=== PATIENT | female | born 1995 | race Two or more races ===

== ENCOUNTER 2018-09-14 17:28 | Inpatient (IN) | payer OTHER ==
[~2018-09-14] VITALS: Ht 160 cm; Wt 95.3 kg
[2018-09-14] MEDS ORDERED: diphenhydrAMINE HCL 25 MG CAPSULE PO PRN (21:15)
[2018-09-14] MEDS ORDERED: TERBUTALINE 1 MG/ML VIAL. SQ PRN (21:15)
[2018-09-14] MEDS ORDERED: ONDANSETRON PF 4 MG/2 ML VIAL. IV PRN (21:15)
[2018-09-14] MEDS ORDERED: CITRIC ACID/SODIUM CITRATE 30 ML SOLUTION. PO PRN (21:15)
[2018-09-14] MEDS ORDERED: MAG HYDROX/ALUMINUM HYD/SIMETH 30 ML ORAL.SUSP PO PRN (21:15)
[2018-09-14] MEDS ORDERED: ACETAMINOPHEN 500 MG TABLET PO PRN (21:15)
[2018-09-14] MEDS ORDERED: 0.9 % SODIUM CHLORIDE 10 ML DISP.SYRIN. IV PRN (21:15)
[2018-09-14] MEDS ORDERED: IV RINGERS,LACTATED 1000ML 1,000 ML IV SCH (22:00)
[2018-09-14 22:05] LABS: BASO % 0 % (0-3); EOS # 0.2 x10^3/uL (0.0-0.7); EOS % 2 % (0-3); HEMATOCRIT 33.6 % (36.0-47.0); HEMOGLOBIN 11.5 g/dL (12.0-15.5); LYMPH % 18 % (24-48); MEAN CORPUSCULAR HEMOGLOBIN 30 pg (25-35); MEAN CORPUSCULAR HGB CONC 34 g/dL (31-37); MEAN CORPUSCULAR VOLUME 89 fL (79-100); MONO # 0.8 x10^3/uL (0.0-1.1); MONO % 7 % (0-9); NEUT # 8.1 x10^3/uL (1.8-7.7); NEUT % 73 % (31-73); PLATELET COUNT 201 x10^3/uL (140-400); RED BLOOD COUNT 3.79 x10^6/uL (3.50-5.40); RED CELL DISTRIBUTION WIDTH 12.7 % (11.5-14.5); WHITE BLOOD COUNT 11.1 x10^3/uL (4.0-11.0)
[2018-09-14 22:42] LABS: BILIRUBIN,URINE NEGATIVE (NEG); CLARITY,URINE CLEAR; COLOR,URINE YELLOW; NITRITE,URINE NEGATIVE (NEG); PROTEIN,URINE NEGATIVE (NEG-TRACE); UROBILINOGEN,URINE 0.2 mg/dL (0.2 mg/dL)
[2018-09-14 22:47] LABS: SQUAMOUS EPITHELIAL CELL,UR MOD /LPF
[2018-09-14 22:48] LABS: BACTERIA,URINE 0 /HPF (0-FEW); RBC,URINE OCC /HPF (0-2)
[2018-09-14 22:57] LABS: AMPHETAMINE/METHAMPHETAMINE NEG (NEG); BARBITURATES NEG (NEG); BENZODIAZEPINES NEG (NEG); CANNABINOIDS NEG (NEG); COCAINE NEG (NEG); METHADONE NEG (NEG); OPIATES NEG (NEG); PHENCYCLIDINE NEG (NEG)
[2018-09-14 23:15] VITALS: BP 139/71
[2018-09-14] MEDS: IV RINGERS,LACTATED 1000ML 1,000 ML IV SCH (23:24)
[2018-09-15] VITALS (9 sets, daily range): BP systolic 115–133; BP diastolic 76–88
[2018-09-15] MEDS: IV RINGERS,LACTATED 1000ML 1,000 ML IV SCH ×3 (04:32→22:08)
[2018-09-15] MEDS ORDERED: PNV11TAB PO (08:45)
[2018-09-15] MEDS ORDERED: IV RINGERS,LACTATED 1000ML 1,000 ML IV SCH (10:18)
[2018-09-15] MEDS ORDERED: ONDANSETRON PF 4 MG/2 ML VIAL. IV PRN ×2 (10:30→13:30)
[2018-09-15] MEDS ORDERED: fentaNYL PF VIAL 100 MCG/2 ML VIAL IV PRN ×2 (10:30)
[2018-09-15] MEDS ORDERED: HYDROmorphone 2 MG/ML VIAL IV PRN (10:30)
[2018-09-15] MEDS ORDERED: KETOROLAC 30 MG/ML VIAL. IV PRN (10:30)
[2018-09-15] MEDS ORDERED: PROCHLORPERAZINE 10 MG/2 ML VIAL. IV PRN (10:30)
[2018-09-15] MEDS ORDERED: MORPHINE SULFATE 2 MG/ML VIAL. IV PRN (10:30)
[2018-09-15] MEDS ORDERED: LIDOCAINE 1% PF 2 ML VIAL. ID PRN (10:30)
[2018-09-15] MEDS ORDERED: METOCLOPRAMIDE HCL 10 MG/2 ML VIAL. ONE (11:53)
[2018-09-15] MEDS ORDERED: FAMOTIDINE 20 MG/2 ML VIAL ONE (11:53)
[2018-09-15] MEDS ORDERED: DEXAMETHASONE SOD PHOS 4 MG/ML VIAL ONE (11:53)
[2018-09-15] MEDS ORDERED: ePHEDrine PF IN SALINE 50 MG/10 ML SYRINGE. IV ONE (11:53)
[2018-09-15] MEDS ORDERED: OXYTOCIN 10 UNIT/ML VIAL. ONE (11:53)
[2018-09-15] MEDS ORDERED: PHENYLEPHRINE in 0.9% NACL PF 1 MG/10 ML SYRINGE. IV ONE (11:53)
[2018-09-15] MEDS ORDERED: ONDANSETRON PF 4 MG/2 ML VIAL. ONE (11:53)
[2018-09-15] MEDS ORDERED: fentaNYL PF VIAL 100 MCG/2 ML VIAL ONE (11:55)
[2018-09-15] MEDS ORDERED: MORPHINE PF 10 MG/10 ML AMPUL. ONE (11:55)
--- NOTE | 2018-09-15 12:16 | PDOC1 ---
OB - History Hx of Present Care: Good Care Ultrasounds: Normal mid trimester US Obstetrical Complications: None Medical Complications: None Past Family/Social History * Past Medical, Surgical, Family and Obstetric Histories reviewed from chart. Rubella: Immune RPR/VDRL: Negative GBS Status: Negative HBsAG: Negative OB - Chief Complaint & HPI Date of Admission: Date of Admission: Sep 14, 2018 at 21:13 Chief Complaint/History : 1 Para: 0 EGA: 38 Reason for admission: section (Oligohydramnios and breech) Admission Nurse Assessment Rev: Yes OB - Admission Exam Physical Exam Vitals: VS - Last 72 Hours, by Label Date Time Temp Pulse Resp B/P (MAP) Pulse Ox O2 Delivery O2 Flow Rate FiO2 09/14/18 23:15 98.0 97 18 139/71 (93) 98 Room Air 98.0 HEENT: Normal Heart: Regular Rate Lungs: Clear Abdomen: Gravid, Non tender, Soft Extremities: Edema Reflexes: Normal Cervical Dilatation: None Effacement: 25% Station: -3 Membranes: Intact Heart Rate: Normal Accelerations: Accelerations Present Decelerations: No decelerations Contractions on Admission: None Intensity: Mild Text A: 38 wks IUP Oligohydramnios Breech P: Admit c/s. SHWETA MENENDEZ Jr, MD Sep 15, 2018 12:16
--- NOTE | 2018-09-15 13:18 | PDOC4 ---
OB Operative Note Date: Sep 15, 2018 PRE OP DIAGNOSIS: Breech (Oligohydramnios) POST OP DIAGNOSIS: Other (Same) OPERATION PERFORMED: [facility] Surgeon Dr. Hudson Anesthesia: Regional (Spinal) Blood Loss 600 ml Specimen placenta and infant OB Findings: Position (Breech), Sex (Female), (8/9), Weight (6 Lb), Nuchal Cord (x1) Complications none Additional Remarks pt. SHWETA Cordoba Jr, MD Sep 15, 2018 13:18
[2018-09-15] MEDS ORDERED: ZOLPIDEM 5 MG TABLET. PO PRN (13:30)
[2018-09-15] MEDS ORDERED: MAG HYDROX/ALUMINUM HYD/SIMETH 30 ML ORAL.SUSP PO PRN (13:30)
[2018-09-15] MEDS ORDERED: 0.9 % SODIUM CHLORIDE 10 ML DISP.SYRIN. IV PRN (13:30)
[2018-09-15] MEDS ORDERED: diphenhydrAMINE ORAL ELIXIR 12.5 MG/5 ML ML PO PRN (13:30)
[2018-09-15] MEDS ORDERED: OXYTOCIN 30 UNIT/500 ML PREMIX 500 ML IV PRN (13:30)
[2018-09-15] MEDS ORDERED: SIMETHICONE 80 MG TAB.CHEW PO PRN (13:30)
[2018-09-15] MEDS: KETOROLAC 30 MG/ML VIAL. IV PRN ×2 (16:08→22:09)
--- NOTE | 2018-09-15 17:53 | OP ---
DATE OF SURGERY: 09/15/2018 PREOPERATIVE DIAGNOSES: 1. A 38 weeks intrauterine . 2. Breech presentation. 3. Oligohydramnios. POSTOPERATIVE DIAGNOSES: 1. A 38 weeks intrauterine . 2. Breech presentation. 3. Oligohydramnios. PROCEDURE: Primary low-transverse section. SURGEON: Shweta Hudson MD ANESTHESIA: Spinal. ESTIMATED BLOOD LOSS: 600 mL. COMPLICATIONS: None. FINDINGS: Viable female infant, Apgars 8 and 9, weight 6 pounds. Three-vessel cord placenta, delivered manually intact. Nuchal cord x 1. SUMMARY: A 23-year-old 1 at 38 weeks, presented due to breech presentation and oligohydramnios. She was counseled on the risks, benefits and expectations of a section and voiced a clear understanding to proceed. DESCRIPTION OF PROCEDURE: The patient was taken to surgery suite and placed in dorsal supine position. She was prepped with ChloraPrep and draped in a sterile fashion. After adequate anesthesia, a Pfannenstiel skin incision was made with scalpel down to and through the fascia. Fascia was extended laterally using curved Hurst scissors. The superior edge of fascia was grasped with 2 Staci clamps and dissected free of the abdominal rectus muscles using blunt dissection along with Bovie cautery. The same process took place inferiorly. The abdominal rectus muscle was dissected bluntly at the midline. Peritoneum was grasped with 2 hemostats and entered sharply with Metzenbaum scissors. This incision was extended superiorly as well as inferiorly. The Glenroy ring retractor was placed. Low transverse hysterotomy incision was made with scalpel down to the amniotic sac. Hysterotomy incision was extended laterally and superiorly digitally. With the aid of Allis clamps, amniotomy was performed, which elicited a moderate amount of clear fluid. With aid of fundal pressure and while grasping the feet, the legs were delivered as well as the buttocks all the way down to the scapula. The was then wrapped in a moist blue towel at the hips. The right arm was flexed over the chest and delivered. The left arm was flexed over the chest and delivered. With the aid of fundal pressure, the head was then delivered in an atraumatic manner. Nuchal cord x 1 was visualized and reduced. The infant was suctioned with a bulb syringe orally and nasally, umbilical cord was clamped twice and cut and a viable female infant was handed to waiting nursing staff. Umbilical cord blood was then obtained. Three-vessel cord placenta was delivered manually intact. The uterus was then exteriorized and cleared of clot and debris with a moist lap. The hysterotomy incision was reapproximated using #1 Vicryl suture in a running locked fashion and imbricated layer of #1 Vicryl suture in a running fashion was performed for better hemostasis. Three [id number] sutures were placed in the left apex of the hysterotomy incision for better hemostasis. Uterus palpated firm. Fallopian tubes and ovaries appeared normal bilaterally. Posterior cul-de-sac was cleared of clot and debris with a moist lap. The uterus was then returned to the abdomen. The pericolic gutters were cleared of clot and debris with a moist lap. Hysterotomy incision was reviewed and hemostatic. The [place]roy ring retractor was removed. The peritoneum was reapproximated using #1 Vicryl suture in a running fashion. Fascia was reapproximated using 0 Vicryl suture in a running fashion. Skin was reapproximated using 4-0 Vicryl suture in subcuticular manner. The patient tolerated the procedure well and was taken to recovery room in stable condition. Sponge and needle count correct x 3. SHWETA HUDSON MD DR: ANISH/griselda JOB#: [id number] / [id number]
[2018-09-15] MEDS: oxyCODONE/APAP 5/325 1 TAB TABLET PO PRN (22:07)
[2018-09-15] MEDS: DOCUSATE SODIUM 100 MG CAPSULE. PO PRN (22:07)
[2018-09-16] MEDS: KETOROLAC 30 MG/ML VIAL. IV PRN (06:34)
[2018-09-16 06:52] VITALS: BP 114/80
[2018-09-16 06:58] LABS: BASO # 0.1 x10^3/uL (0.0-0.2); BASO % 1 % (0-3); EOS # 0.1 x10^3/uL (0.0-0.7); EOS % 1 % (0-3); HEMATOCRIT 29.2 % (36.0-47.0); HEMOGLOBIN 9.8 g/dL (12.0-15.5); LYMPH # 2.1 x10^3/uL (1.0-4.8); LYMPH % 19 % (24-48); MEAN CORPUSCULAR HEMOGLOBIN 30 pg (25-35); MEAN CORPUSCULAR HGB CONC 34 g/dL (31-37); MEAN CORPUSCULAR VOLUME 90 fL (79-100); MONO # 0.8 x10^3/uL (0.0-1.1); MONO % 7 % (0-9); NEUT # 8.4 x10^3/uL (1.8-7.7); NEUT % 73 % (31-73); PLATELET COUNT 162 x10^3/uL (140-400); RED BLOOD COUNT 3.25 x10^6/uL (3.50-5.40); RED CELL DISTRIBUTION WIDTH 12.6 % (11.5-14.5); WHITE BLOOD COUNT 11.5 x10^3/uL (4.0-11.0)
[2018-09-16 10:45] VITALS: BP 121/82
[2018-09-16] MEDS: oxyCODONE/APAP 5/325 1 TAB TABLET PO PRN ×2 (12:25→17:20)
[2018-09-16] MEDS: FERROUS SULFATE 325 MG TABLET. PO SCH ×3 (12:25→17:19)
[2018-09-16] MEDS: DOCUSATE SODIUM 100 MG CAPSULE. PO PRN (12:25)
[2018-09-16] MEDS: IBUPROFEN 400 MG TABLET. PO PRN ×3 (12:26→23:20)
--- NOTE | 2018-09-16 14:11 | PDOC ---
Provider Note Provider Note Doing well In nursery FU in AM CBC - BMP 09/16/18 06:15 Vital Sign - Last 24 Hours 09/15/18 09/15/18 09/15/18 09/15/18 16:20 16:35 16:50 17:10 Temp 98.4 98.4 Pulse 78 84 87 72 Resp 18 18 16 18 B/P (MAP) 126/76 (93) 124/80 (95) 132/82 (99) 124/85 (98) Pulse Ox 100 99 98 98 O2 Delivery Room Air Room Air Room Air Room Air 09/15/18 09/15/18 09/15/18 09/15/18 17:25 18:00 18:35 20:20 Temp 98.9 98.6 98.9 98.6 Pulse 81 68 64 67 Resp 18 18 18 18 B/P (MAP) 124/81 (95) 133/78 (96) 128/76 (93) 122/82 (95) Pulse Ox 98 99 99 97 O2 Delivery Room Air Room Air Room Air Room Air 09/15/18 09/15/18 09/16/18 22:08 23:30 06:52 Temp 98.3 98.1 98.3 98.1 Pulse 88 62 Resp 20 18 18 B/P (MAP) 115/88 (97) 114/80 (91) Pulse Ox 95 97 O2 Delivery Room Air Room Air Intake and Output 09/15/18 09/15/18 09/16/18 15:00 23:00 07:00 Intake Total 545 ml 300 ml Output Total 150 ml Balance 395 ml 300 ml SE MARTEL MD Sep 16, 2018 14:11
[2018-09-16 17:35] VITALS: BP 101/70
[2018-09-16 21:21] VITALS: BP 100/67
[2018-09-17 06:00] VITALS: BP 114/79
[2018-09-17] MEDS: FERROUS SULFATE 325 MG TABLET. PO SCH ×3 (08:00→16:55)
[2018-09-17] MEDS: DOCUSATE SODIUM 100 MG CAPSULE. PO PRN ×2 (08:19→23:13)
--- NOTE | 2018-09-17 09:04 | PDOC ---
Provider Note Provider Note Doing well incision CDI FU in AM Vital Sign - Last 24 Hours 09/16/18 09/16/18 09/16/18 09/17/18 10:45 17:35 21:21 06:00 Temp 98.2 98.0 97.9 97.8 98.2 98.0 97.9 97.8 Pulse 68 75 65 86 Resp 18 18 B/P (MAP) 121/82 (95) 101/70 (80) 100/67 (78) 114/79 (91) Pulse Ox 96 98 100 99 O2 Delivery Room Air Room Air Intake and Output 09/16/18 09/16/18 09/17/18 14:59 22:59 06:59 Intake Total 210 ml 360 ml Output Total 2450 ml Balance -2240 ml 360 ml SE MARTEL MD Sep 17, 2018 09:04
[2018-09-17 09:18] VITALS: BP 112/75
[2018-09-17 13:25] VITALS: BP 119/77
[2018-09-17] MEDS: oxyCODONE/APAP 5/325 1 TAB TABLET PO PRN ×2 (15:05→23:14)
[2018-09-17] MEDS ORDERED: MAGNESIUM HYDROXIDE 2,400 MG/30 ML ORAL.SUSP. PO PRN (17:00)
[2018-09-17 20:00] VITALS: BP 116/86
[2018-09-17] MEDS: IBUPROFEN 400 MG TABLET. PO PRN (23:13)
[2018-09-18 05:20] VITALS: BP 113/80
[2018-09-18] MEDS: oxyCODONE/APAP 5/325 1 TAB TABLET PO PRN ×2 (05:21→10:21)
[2018-09-18] MEDS: IBUPROFEN 400 MG TABLET. PO PRN ×2 (05:21→15:09)
[2018-09-18] MEDS: DOCUSATE SODIUM 100 MG CAPSULE. PO PRN (10:12)
[2018-09-18] MEDS: FERROUS SULFATE 325 MG TABLET. PO SCH (10:13)
[2018-09-18 10:15] VITALS: BP 128/89
[2018-09-18 17:13] VITALS: BP 123/81
--- NOTE | 2018-09-18 17:15 | NUR ---
Discharge Discharge instructions given to patient and family at this time, no questions or concerns. Given Boarder Policy information, agreed and signed placed in chart. Chart with Nursery while baby in [place]. Addendum: 09/18/18 at 1718 by EVIN ORTEGA RN To follow up with DR Hudson in 2 weeks, and Deborah polo in 6 weeks.
== END 2018-09-18 17:19 | disposition home or self-care (01) | DRG 788 ==
LOC: OBSVTOIN 21:13 → 3 SO LND 21:13 → 3 NORTH 09-15 16:25
PROVIDERS: ADMIT Obstetrics & Gynecology; ATTEND Obstetrics & Gynecology
PROC: 10D00Z1 Extraction of Products of Conception, Low, Open Approach (ICD-10-PCS; principal; 2018-09-15)
DX: O41.03X0 Oligohydramnios, third trimester, not applicable or unspecified (principal); O32.1XX0 Maternal care for breech presentation, not applicable or unspecified; O69.81X0 Labor and delivery complicated by cord around neck, without compression, not applicable or unspecified; Z37.0 Single live birth; Z3A.38 38 weeks gestation of pregnancy
CPT/HCPCS: 36415; 80307; 81001; 85025; 86592; 86850; 86900; 86901; G0378; J0171; J0696; J1100; J1885; J2274; J2370; J2405; J2590; J2765; J3010; J3490; J7120

== ENCOUNTER 2020-08-29 11:35 | Emergency (ER) | payer BC, OTHER ==
[~2020-08-29] VITALS: Ht 162.6 cm; Wt 81.8 kg
[~2020-08-29 11:35] MED LIST: PNV11TAB PO
[2020-08-29] MEDS ORDERED: ONDANSETRON PF 4 MG/2 ML VIAL. IVP ONE (13:00)
[2020-08-29] MEDS ORDERED: IV NORMAL SALINE 1000ML BAG 1,000 ML IV SCH (13:00)
[2020-08-29] MEDS ORDERED: FAMOTIDINE 20 MG/2 ML VIAL IVP ONE (13:15)
[2020-08-29 13:24] LABS: BILIRUBIN,URINE NEGATIVE (NEG); CLARITY,URINE CLEAR; COLOR,URINE YELLOW; NITRITE,URINE NEGATIVE (NEG); PROTEIN,URINE NEGATIVE (NEG-TRACE); UROBILINOGEN,URINE 0.2 mg/dL (0.2 mg/dL)
[2020-08-29 13:32] LABS: CALCIUM 8.6 mg/dL (8.5-10.1); CREATININE 0.5 mg/dL (0.6-1.0); GFR 149.1; POTASSIUM 3.6 mmol/L (3.5-5.1)
[2020-08-29 13:38] LABS: ALBUMIN 3.3 g/dL (3.4-5.0); TOTAL BILIRUBIN 0.3 mg/dL (0.2-1.0); TOTAL PROTEIN 6.7 g/dL (6.4-8.2)
[2020-08-29 13:40] LABS: BASO # 0.1 x10^3/uL (0.0-0.2); BASO % 1 % (0-3); EOS # 0.2 x10^3/uL (0.0-0.7); EOS % 2 % (0-3); HEMATOCRIT 35.9 % (36.0-47.0); HEMOGLOBIN 12.1 g/dL (12.0-15.5); LYMPH # 1.6 x10^3/uL (1.0-4.8); LYMPH % 15 % (24-48); MEAN CORPUSCULAR HEMOGLOBIN 31 pg (25-35); MEAN CORPUSCULAR HGB CONC 34 g/dL (31-37); MEAN CORPUSCULAR VOLUME 90 fL (79-100); MONO # 0.7 x10^3/uL (0.0-1.1); MONO % 7 % (0-9); NEUT # 8.1 x10^3/uL (1.8-7.7); NEUT % 76 % (31-73); PLATELET COUNT 215 x10^3/uL (140-400); RED BLOOD COUNT 3.98 x10^6/uL (3.50-5.40); WHITE BLOOD COUNT 10.6 x10^3/uL (4.0-11.0)
[2020-08-29 13:55] LABS: BACTERIA,URINE FEW /HPF (0-FEW); RBC,URINE 0 /HPF (0-2); WBC,URINE OCC /HPF (0-4)
--- NOTE | 2020-08-29 13:56 | RAD ---
First trimester OB ultrasound CLINICAL HISTORY: Abdominal pain in . COMPARISON: None available. TECHNIQUE: Endovaginal sonography was performed FINDINGS: An intrauterine gestational sac is present, normal in morphology.. An embryo is identified .Cardiac activity is visualized and documented at a rate of 133 beats per minute. There is no subchorionic flu id collection. Based on a crown rump length averaging 0.40 cm, the estimated gestational age is 6 weeks 1 day. Aisha mated date of delivery is 04/23/2021 Right ovary: 3.1 x 2.6 x 1.6 cm Left ovary: 4.4 x 1.9 x 2.4 cm. A left ovarian 2.5 cm corpus luteal cyst is identified. Color flow to both ovaries. There is no pelvic free fluid. IMPRESSION: Single viable intrauterine gestation with estimated sonographic gestational age of 6 weeks 1 day, wit h estimated gestational age of 304/23/2021. No acute findings. Electronically signed by: Sedrick Armstrong MD (08/29/2020 1:53 PM) [facility]
[2020-08-29] MEDS ORDERED: IV NORMAL SALINE 1000ML BAG 1,000 ML IV ONE (14:15)
--- NOTE | 2020-08-29 14:19 | PHYS DOC ---
Past Medical History Past Medical History: No Pertinent History Past Surgical History: , Knee Replacement Smoking Status: Never Smoker Alcohol Use: None Drug Use: None General Adult EDM: Chief Complaint: VOMITING IN HPI: HPI: Patient is a 25 year old female who presents with vomiting and epigastric pain since she is been . She does have a September 14 appointment with an OB doctor at [facility]. Patient July 10 with her last menstrual period. She states that she is having hard time keeping down any fluids. She denies any vaginal bleeding or abnormal vaginal discharge. Patient has a history of C- section and ACL. Patient rates her discomfort at a 4 out of 10. Review of Systems: Review of Systems: Constitutional: Denies fever or chills. [] Eyes: Denies change in visual acuity. [] HENT: Denies nasal congestion or sore throat. [] Respiratory: Denies cough or shortness of breath. [] Cardiovascular: Denies chest pain or edema. [] GI: +Epigastric abdominal pain, +nausea, +vomiting, denies bloody stools or diarrhea. [] : Denies dysuria. [] Musculoskeletal: Denies back pain or joint pain. [] Integument: Denies rash. [] Neurologic: Denies headache, focal weakness or sensory changes. [] Endocrine: Denies polyuria or polydipsia. [] Lymphatic: Denies swollen glands. [] Psychiatric: Denies depression or anxiety. [] Heart Score: C/O Chest Pain: No Risk Factors: Risk Factors: DM, Current or recent (<one month) smoker, HTN, HLP, family history of CAD, obesity. Risk Scores: Score 0 - 3: 2.5% MACE over next 6 weeks - Discharge Home Score 4 - 6: 20.3% MACE over next 6 weeks - Admit for Clinical Observation Score 7 - 10: 72.7% MACE over next 6 weeks - Early Invasive Strategies Current Medications: Current Medications Medications (Trade) Dose Ordered Sig/Randolph Start Time Stop Time Status Last Admin Dose Admin Famotidine (Pepcid Vial) 20 mg 1X ONCE 08/29/20 13:15 08/29/20 13:16 DC 08/29/20 13:23 20 MG Ondansetron HCl (Zofran) 4 mg 1X ONCE 08/29/20 13:00 08/29/20 13:01 DC 08/29/20 13:23 4 MG Sodium Chloride 1,000 ml @ 1,000 mls/hr Q1H 08/29/20 13:00 08/29/20 13:59 DC 08/29/20 13:23 1,000 MLS/HR Allergies: Allergies: Allergies Coded Allergies Type Severity Reaction Last Updated Verified No Known Drug Allergies 12/16/13 No Physical Exam: PE: Constitutional: Well developed, well nourished, no acute distress, non-toxic appearance. [] HENT: Normocephalic, atraumatic, bilateral external ears normal, oropharynx moist, no oral exudates, nose normal. [] Eyes: PERRLA, EOMI, conjunctiva normal, no discharge. [] Neck: Normal range of motion, no tenderness, supple, no stridor. [] Cardiovascular:Heart rate regular rhythm, no murmur [] Lungs & Thorax: Bilateral breath sounds clear to auscultation [] Abdomen: Bowel sounds normal, soft, no tenderness, no masses, no pulsatile masses. [] Skin: Warm, dry, no erythema, no rash. [] Back: No tenderness, no CVA tenderness. [] Extremities: No tenderness, no cyanosis, no clubbing, ROM intact, no edema. [] Neurologic: Alert and oriented X 3, normal motor function, normal sensory fun ction, no focal deficits noted. [] Psychologic: Affect normal, judgement normal, mood normal. [] Normal physical exam Current Patient Data: Labs: Laboratory Tests Test 08/29/20 12:00 08/29/20 12:11 08/29/20 13:14 Urine Collection Type Unknown Urine Color Yellow Urine Clarity Clear Urine pH 8.0 (<5.0-8.0) Urine Specific [place] 1.010 (1.000-1.030) Urine Protein Negative mg/dL (NEG-TRACE) Urine Glucose (UA) Negative mg/dL (NEG) Urine Ketones (Stick) 15 mg/dL (NEG) Urine Blood Negative (NEG) Urine Nitrite Negative (NEG) Urine Bilirubin Negative (NEG) Urine Urobilinogen Dipstick 0.2 mg/dL (0.2 mg/dL) Urine Leukocyte Esterase Negative (NEG) Urine RBC 0 /HPF (0-2) Urine WBC Occ /HPF (0-4) Urine Squamous Epithelial Cells Many /LPF Urine Bacteria Few /HPF (0-FEW) POC Urine HCG, Qualitative Hcg positive (Negative) White Blood Count 10.6 x10^3/uL (4.0-11.0) Red Blood Count 3.98 x10^6/uL (3.50-5.40) Hemoglobin 12.1 g/dL (12.0-15.5) Hematocrit 35.9 % (36.0-47.0) L Mean Corpuscular Volume 90 fL (79-100) Mean Corpuscular Hemoglobin 31 pg (25-35) Mean Corpuscular Hemoglobin Concent 34 g/dL (31-37) Red Cell Distribution Width 13.0 % (11.5-14.5) Platelet Count 215 x10^3/uL (140-400) Neutrophils (%) (Auto) 76 % (31-73) H Lymphocytes (%) (Auto) 15 % (24-48) L Monocytes (%) (Auto) 7 % (0-9) Eosinophils (%) (Auto) 2 % (0-3) Basophils (%) (Auto) 1 % (0-3) Neutrophils # (Auto) 8.1 x10^3/uL (1.8-7.7) H Lymphocytes # (Auto) 1.6 x10^3/uL (1.0-4.8) Monocytes # (Auto) 0.7 x10^3/uL (0.0-1.1) Eosinophils # (Auto) 0.2 x10^3/uL (0.0-0.7) Basophils # (Auto) 0.1 x10^3/uL (0.0-0.2) Maternal Serum HCG Beta Subunit 72343 mIU/mL (0-5) H Sodium Level 137 mmol/L (136-145) Potassium Level 3.6 mmol/L (3.5-5.1) Chloride Level 102 mmol/L (98-107) Carbon Dioxide Level 26 mmol/L (21-32) Anion Gap 9 (6-14) Blood Urea Nitrogen 7 mg/dL (7-20) Creatinine 0.5 mg/dL (0.6-1.0) L Estimated GFR (Cockcroft-Gault) 149.1 BUN/Creatinine Ratio 14 (6-20) Glucose Level 83 mg/dL (70-99) Calcium Level 8.6 mg/dL (8.5-10.1) Magnesium Level 2.0 mg/dL (1.8-2.4) Total Bilirubin 0.3 mg/dL (0.2-1.0) Aspartate Amino Transferase (AST) 13 U/L (15-37) L Alanine Aminotransferase (ALT) 21 U/L (14-59) Alkaline Phosphatase 65 U/L (46-116) Total Protein 6.7 g/dL (6.4-8.2) Albumin 3.3 g/dL (3.4-5.0) L Albumin/Globulin Ratio 1.0 (1.0-1.7) Lipase 41 U/L (73-393) L Laboratory Tests 08/29/20 13:14 Laboratory Tests 08/29/20 13:14 Vital Signs: Vital Signs Date Time Temp Pulse Resp B/P (MAP) Pulse Ox O2 Delivery O2 Flow Rate FiO2 08/29/20 11:50 98.1 81 20 108/58 (95) 100 Room Air 98.1 EKG: EKG: [] Radiology/Procedures: Radiology/Procedures: [] Impression: [facility] [id number] [place] [address] IMAGING REPORT Signed PATIENT: CONCHITA MENDEZ ACCOUNT: [id number] : 1995 LOCATION: ER AGE: 25 SEX: F EXAM STATUS: REG ER ORD. PHYSICIAN: SELAM ROBB APRN REASON: abd pain in PROCEDURE: OB TRANSVAG First trimester OB ultrasound CLINICAL HISTORY: Abdominal pain in . COMPARISON: None available. TECHNIQUE: Endovaginal sonography was performed FINDINGS: An intrauterine gestational sac is present, normal in morphology.. An embryo is identified .Cardiac activity is visualized and documented at a rate of 133 beats per minute. There is no subchorionic fluid collection. Based on a crown rump length averaging 0.40 cm, the estimated gestational age is 6 weeks 1 day. Estimated date of delivery is 04/23/2021 Right ovary: 3.1 x 2.6 x 1.6 cm Left ovary: 4.4 x 1.9 x 2.4 cm. A left ovarian 2.5 cm corpus luteal cyst is identified. Color flow to both ovaries. There is no pelvic free fluid. IMPRESSION: Single viable intrauterine gestation with estimated sonographic gestational age of 6 weeks 1 day, with estimated gestational age of 304/23/2021. No acute findings. Electronically signed by: Sedrick Woodall MD (08/29/2020 1:53 PM) [facility] DICTATED and SIGNED BY: SEDRICK WOODALL MD DATE: 08/29/20 [id number] 0 Course & Med Decision Making: Course & Med Decision Making Pertinent Labs and Imaging studies reviewed. (See chart for details) See HPI. Alert and oriented x4. Ambulatory steady gait. Speaks in full clear sentences. Abdomen is soft and nontender. Skin pink warm and dry. Ultrasound shows no acute findings. Blood work is unremarkable. She has gotten 2 L of normal saline. Patient has received Zofran. She has been successfully p.o. challenge. [] Dragon Disclaimer: Dragon Disclaimer: This electronic medical record was generated, in whole or in part, using a voice recognition dictation system. Departure Departure Impression: Primary Impression: Nausea and vomiting during Disposition: 01 HOME / SELF CARE / HOMELESS Condition: STABLE Referrals: NO PCP (PCP) Patient Instructions: ABCs of , Abdominal Pain During Additional Instructions: Follow-up with your OB doctor as scheduled. Drink plenty of fluids. Take medication as prescribed. If anything worsens you can always return. Scripts Ondansetron (ONDANSETRON ODT) 4 Mg Tab.rapdis 1 TAB PO PRN Q6-8HRS, #16 TAB Prov: SELAM ROBB APRN 08/29/20 SELAM ROBB APRN Aug 29, 2020 14:18
[2020-08-29] MEDS ORDERED: ONDA4TAB12 PO (16:17)
[2020-08-29 16:47] VITALS: BP 110/53
== END 2020-08-29 16:45 | disposition home or self-care (01) ==
LOC: ER 11:35
DX: O21.9 Vomiting of pregnancy, unspecified (principal); R10.13 Epigastric pain; Z3A.01 Less than 8 weeks gestation of pregnancy
CPT/HCPCS: 36415; 76817; 80053; 81001; 81025; 83690; 83735; 84702; 85025; 96361; 96374; 96375; 99285; J2405; J3490; J7030; 99284-25